=== PATIENT | female | born 1960 | race Caucasian/White ===

== ENCOUNTER 2021-08-03 06:40 | Day surgery (SDC) | payer OTHER, SELFPAY ==
[~2021-08-03] VITALS: Ht 165.1 cm; Wt 98.9 kg
[2021-08-03] MEDS ORDERED: diphenhydrAMINE 50 MG/ML VIAL ONE (08:35)
[2021-08-03] MEDS ORDERED: fentaNYL citrate 0.05 MG/ML VIAL ONE (08:36)
[2021-08-03] MEDS ORDERED: MIDAZOLAM 5 MG/5 ML VIAL ONE (08:37)
[2021-08-03] MEDS ORDERED: fentaNYL citrate 0.05 MG/ML VIAL IVP ONE (11:45)
[2021-08-03] MEDS ORDERED: MIDAZOLAM 2 MG/2 ML VIAL IVP ONE (11:45)
== END 2021-08-03 09:35 | disposition home or self-care (01) ==
LOC: MDS 06:40 → MMU 06:40 → MDS 09:35
PROVIDERS: ATTEND Internal Medicine Gastroenterology
DX: K21.9 Gastro-esophageal reflux disease without esophagitis (principal); K44.9 Diaphragmatic hernia without obstruction or gangrene; G47.33 Obstructive sleep apnea (adult) (pediatric); Z99.89 Dependence on other enabling machines and devices; K59.00 Constipation, unspecified; Z86.010 Personal history of colon polyps; E66.8 Other obesity; Z68.36 Body mass index [BMI] 36.0-36.9, adult; Z79.899 Other long term (current) drug therapy; Z20.822 Contact with and (suspected) exposure to COVID-19
CPT/HCPCS: 43239; 87426; J2250; J3010; J1200